=== PATIENT | male | born 1990 | race American Indian/Alaskan Native ===

== ENCOUNTER 2017-06-23 23:30 | Emergency (ER) | payer SELFPAY ==
--- NOTE | 2017-06-24 01:36 | Ultrasound Report ---
FINAL REPORT PROCEDURE: US TESTICULAR DOPPLER COMP TECHNIQUE: Real-time hankins-scale and color flow Doppler sonography in multiple planes of the scrotum, testicles, and epididymes was performed. Velocity spectral waveform analysis Doppler imaging of the arterial inflow and venous outflow of the testicles was performed with image documentation. CPT 23956 and 21967 HISTORY: r/o testicular torsion, testicular pain COMPARISON: No prior studies are available for comparison. FINDINGS: RIGHT TESTICLE: Size: 5.4 x 2.3 x 3.8 cm . Appearance: Normal size and echotexture . Arterial blood flow: Normal spectral waveforms, flow velocities and color flow images.. Venous blood flow: Normal spectral waveforms and color flow images. Right epididymis: Normal size and echotexture . Hydrocele: Minimal hydrocele is noted. Varicocele is suspected.. LEFT TESTICLE Size: 5.3 x 1.9 x 3.6 cm . Appearance: Normal size and echotexture . Arterial blood flow: Normal spectral waveforms, flow velocities and color flow images.. Venous blood flow: Normal spectral waveforms and color flow images. Leftepididymis: Normal size and echotexture . Hydrocele: Mild hydrocele.. IMPRESSION: Both testicles have a normal size and echogenicity. There is good blood flow to each testicle. Mild hydroceles are identified bilaterally. There is an area of mixed echogenicity adjacent to the right testicle within the scrotum, a varicocele in this region is suspected.
[2017-06-24] MEDS ORDERED: TYLENOL PO ONE (02:57)
[2017-06-24 03:11] VITALS: BP 144/99
--- NOTE | 2017-06-24 04:50 | Cat Scan Report ---
FINAL REPORT EXAM: CT ABDOMEN PELVIS WO CON HISTORY: grion pain TECHNIQUE: Routine axial imaging was obtained of the abdomen pelvis without oral or IV contrast. Sagittal coronal reconstructions were reviewed. FINDINGS: The lung bases are clear. The liver, gallbladder, pancreas, spleen, and adrenal glands appear normal. The kidneys show no evidence of stones or hydronephrosis. The bowel loops are normal in caliber and course. The appendix appears normal. There is no evidence of free fluid or adenopathy. In the pelvis the prostate gland and bladder appear normal. There are several phleboliths along the right side of the pelvis. The skeletal structures are well-maintained IMPRESSION: No acute process in the abdomen and pelvis No evidence of renal stones or obstructive uropathy.
[2017-06-24 05:25] LABS: Hematocrit 42.8 % (35.5-45.6); Hemoglobin 14.3 gm/dl (11.8-15.2); Mean Corpuscular HGB Conc 33 % (32-34); Mean Corpuscular Hemoglobin 31 pg (28-32); Mean Corpuscular Volume 93 fl (84-94); Platelet Count 146 K/mm3 (140-440); Red Cell Distribution Width 12.2 % (13.2-15.2)
[2017-06-24 05:34] LABS: Bacteria,Urine 1+ /HPF (Negative); Bilirubin,Urine NEG (Negative); Blood,Urine NEG (Negative); Color,Urine Yellow (Yellow); Hyaline Casts,Urine 3 /LPF; Mucus,Urine FEW /HPF; Nitrite,Urine NEG (Negative)
[2017-06-24 05:39] LABS: BUN/Creatinine Ratio 6; Blood Urea Nitrogen 9 mg/dL (9-20); Calcium 9.1 mg/dL (8.4-10.2); Hemolysis Index 2
[2017-06-24 06:34] LABS: Band Neutrophils # (Manual) 0.4 K/mm3; Basophils % (Manual) 0 % (0.0-1.8); Eosinophils % (Manual) 0 % (0.0-4.3); Total Cells Counted 100
[2017-06-24 06:35] LABS: RBC Morphology Normal
--- NOTE | 2017-06-24 06:44 | Emergency Department Report ---
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 However the swelling has gone down. The discomfort has decreased but is still present. He denies any penile or testicular lesions, dysuria, penile discharge, abdominal pain, nausea, vomiting or any problems with bowel movements. He did not take anything for her symptoms her presentation. Starting on Tuesday, 4 days ago, the patient also developed a subjective fever and a mixed dry and productive cough. He thinks that he just got a "cold." He denies any past medical history. He does not have a primary care physician. The patient was out of town for work and [place] and returned last night and came straight to the emergency department at that time. ED Past Medical Hx - Past Medical History Previous Medical History?: No - Surgical History Past Surgical History?: No - Social History Smoking Status: Never Smoker Substance Use Type: Alcohol - Medications Home Medications: Home Medications Medication Instructions Recorded Confirmed Last Taken Type HYDROcodone/APAP 5-325 [Gem 1 each PO Q6HR PRN #12 tablet 06/24/17 Unknown Rx 5/325] ED Review of Systems ROS: Stated complaint: BACK PAIN, FEVER Other details as noted in HPI Comment: All other systems reviewed and negative Constitutional: fever. denies: weakness Eyes: denies: eye pain, eye discharge, vision change ENT: denies: ear pain, throat pain Respiratory: cough. denies: shortness of breath Cardiovascular: denies: chest pain, palpitations Gastrointestinal: denies: abdominal pain, nausea, diarrhea Genitourinary: testicular pain. denies: dysuria, discharge Musculoskeletal: denies: back pain, joint swelling, arthralgia Skin: denies: rash, lesions Neurological: denies: headache, weakness, paresthesias Physical Exam - Physical Exam Vital Signs: Vital Signs 06/24/17 06/24/17 06/24/17 00:15 02:34 02:40 Temperature 102.6 F H Pulse Rate 98 H 92 H 90 Respiratory 18 19 Rate Blood Pressure 156/94 162/93 O2 Sat by Pulse 96 100 Oximetry 06/24/17 06/24/17 06/24/17 02:50 02:57 03:00 Temperature 102.6 F H Pulse Rate 77 87 Respiratory 18 14 Rate Blood Pressure 162/93 144/99 O2 Sat by Pulse 100 91 Oximetry 06/24/17 05:10 Temperature Pulse Rate Respiratory 21 Rate Blood Pressure O2 Sat by Pulse 100 Oximetry Physical Exam: GENERAL: The patient is well-developed well-nourished. HENT: Normocephalic. Atraumatic. Patient has moist mucous membranes. EYES: Extraocular motions are intact. Pupils equal reactive to light bilaterally. NECK: Supple. Trachea is midline. CHEST/LUNGS: Clear to auscultation. There is no respiratory distress noted. HEART/CARDIOVASCULAR: Regular. There is no tachycardia. There is no murmur. ABDOMEN: Abdomen is soft, nontender. Patient has normal bowel sounds. There is no abdominal distention. SKIN: Skin is warm and dry. NEURO: The patient is awake, alert, and oriented. The patient is cooperative. The patient has no focal neurologic deficits. The patient has normal speech. MUSCULOSKELETAL: There is no tenderness or deformity. There is no limitation range of motion. There is no evidence of acute injury. : There are no penile or testicular lesions. No palpable hernia. No tenderness to palpation to the testicles. no obvious mass ED Course Vital Signs 06/24/17 06/24/17 06/24/17 00:15 02:34 02:40 Temperature 102.6 F H Pulse Rate 98 H 92 H 90 Respiratory 18 19 Rate Blood Pressure 156/94 162/93 O2 Sat by Pulse 96 100 Oximetry 06/24/17 06/24/17 06/24/17 02:50 02:57 03:00 Temperature 102.6 F H Pulse Rate 77 87 Respiratory 18 14 Rate Blood Pressure 162/93 144/99 O2 Sat by Pulse 100 91 Oximetry 06/24/17 05:10 Temperature Pulse Rate Respiratory 21 Rate Blood Pressure O2 Sat by Pulse 100 Oximetry ED Medical Decision Making - Lab Data Result diagrams: 06/24/17 05:00 06/24/17 05:00 - Radiology Data Radiology results: report reviewed, image reviewed PROCEDURE: US TESTICULAR DOPPLER COMP TECHNIQUE: Real-time hankins-scale and color flow Doppler sonography in multiple planes of the scrotum, testicles, and epididymes was performed. Velocity spectral waveform analysis Doppler imaging of the arterial inflow and venous outflow of the testicles was performed with image documentation. CPT 23555 and 39182 HISTORY: r/o testicular torsion, testicular pain COMPARISON: No prior studies are available for comparison. FINDINGS: RIGHT TESTICLE: Size: 5.4 x 2.3 x 3.8 cm . Appearance: Normal size and echotexture . Arterial blood flow: Normal spectral waveforms, flow velocities and color flow images.. Venous blood flow: Normal spectral waveforms and color flow images. Right epididymis: Normal size and echotexture . Hydrocele: Minimal hydrocele is noted. Varicocele is suspected.. LEFT TESTICLE Size: 5.3 x 1.9 x 3.6 cm . Appearance: Normal size and echotexture . Arterial blood flow: Normal spectral waveforms, flow velocities and color flow images.. Venous blood flow: Normal spectral waveforms and color flow images. Leftepididymis: Normal size and echotexture . Hydrocele: Mild hydrocele.. IMPRESSION: Both testicles have a normal size and echogenicity. There is good blood flow to each testicle. Mild hydroceles are identified bilaterally. There is an area of mixed echogenicity adjacent to the right testicle within the scrotum, a varicocele in this region is suspected. Transcribed By: IVAN Dictated By: LM GUZMAN MD Electronically Authenticated By: LM GUZMAN MD Signed Date/Time: 06/23/172131 EXAM: CT ABDOMEN PELVIS WO CON HISTORY: grion pain TECHNIQUE: Routine axial imaging was obtained of the abdomen pelvis without oral or IV contrast. Sagittal coronal reconstructions were reviewed. FINDINGS: The lung bases are clear. The liver, gallbladder, pancreas, spleen, and adrenal glands appear normal. The kidneys show no evidence of stones or hydronephrosis. The bowel loops are normal in caliber and course. The appendix appears normal. There is no evidence of free fluid or adenopathy. In the pelvis the prostate gland and bladder appear normal. There are several phleboliths along the right side of the pelvis. The skeletal structures are well-maintained IMPRESSION: No acute process in the abdomen and pelvis No evidence of renal stones or obstructive uropathy. Transcribed By: FRANCES Dictated By: TRISTA PHIPPS MD Electronically Authenticated By: TRISTA PHIPPS MD Signed Date/Time: 06/24/17 0047 - Medical Decision Making The patient presents with what appears to be 2 different issues. Regarding his testicular pain, a ultrasound was done that did not show any signs of any torsion. There is mild bilateral hydrocele and a possible right-sided varicocele. He does not have any issues with urination and there is no discharge with concerns for urethritis. The patient has a fever of 102 that came down with Tylenol to a normal level. He has some intermittent cough so a chest x-ray was done that does not show any signs of any pneumonia or any other acute process. The rest of his labs are unremarkable including no leukocytosis. It is possible the patient could have influenza but he is about 3-4 days out from development of the symptoms and therefore he is outside the window that Tamiflu is recommended. He will use Tylenol and ibuprofen to treat his discomfort. He was given a referral for primary care and urology. He will return to the ER with any worsening of symptoms or any acute distress. - Differential Diagnosis testicular torsion, hernia, influenza, upper respiratory infection Critical Care Time: No Critical care attestation.: If time is entered above; I have spent that time in minutes in the direct care of this critically ill patient, excluding procedure time. ED Disposition Clinical Impression: Right testicular pain, Viral syndrome, Varicocele Fever Qualifiers: Fever type: unspecified Qualified Code(s): R50.9 - Fever, unspecified Hydrocele Qualifiers: Hydrocele type: unspecified Qualified Code(s): N43.3 - Hydrocele, unspecified Disposition: DC-01 TO HOME OR SELFCARE Is pt being admited?: No Condition: Stable Instructions: Hydrocele (ED), Fever in Adults (ED), Varicocele (ED), Testicle Pain (ED) Additional Instructions: Please follow up with a primary care physician in the next few days. He continues Tylenol every 4 hours and ibuprofen every 6 hours, using weight-based dosing, as needed for discomfort. I have also prescribed you a pain medication that has some Tylenol and it, so make sure not to take too much extra. I have given you a referral to a local urologist, Dr. Aaron, to follow-up regarding or testicular pain and hydrocele and varicocele. Return to the emergency Department with any worsening of your symptoms or any acute distress. You have been prescribed a medication that is sedating and therefore should not be taken prior to driving, working, and responsible for children and in no way should be mixed with alcohol of any quantity. Prescriptions: HYDROcodone/APAP 5-325 [Gem 5/325] 1 each PO Q6HR PRN #12 tablet PRN Reason: Pain Referrals: ELHAM MIMS MD [Primary Care Provider] - 3-5 Days ROSALINDA AARON MD [Staff Physician] - 3-5 Days MICA JAIMES MD [Staff Physician] - 3-5 Days Time of Disposition: 06:57
--- NOTE | 2017-06-24 06:52 | XRay Report ---
FINAL REPORT EXAM: XR CHEST ROUTINE 2V HISTORY: cough TECHNIQUE: PA and lateral views of the chest were submitted. FINDINGS: Heart size and mediastinum appear normal. The lungs are clear. The bones soft tissues appear normal. IMPRESSION: Normal chest.
== END 2017-06-24 07:11 | disposition home or self-care (01) ==
LOC: ED 23:30
DX: I86.1 Scrotal varices (principal); N43.3 Hydrocele, unspecified; B34.9 Viral infection, unspecified
CPT/HCPCS: 36415; 71046; 74176; 80048; 81001; 85007; 85025; 87086; 93975